=== PATIENT | female | born 1955 | race Caucasian/White ===

== ENCOUNTER 2020-12-04 14:08 | Outpatient (CLI) | payer OTHER ==
--- NOTE | 2020-12-05 09:00 | Mammography Report ---
BILATERAL DIGITAL SCREENING MAMMOGRAM 3D/2D: 12/04/2020 CLINICAL: Routine screening. Comparison is made to exams dated: 08/03/2017 mammogram, 07/07/2016 mammogram, and 11/11/2011 mammogram - [facility]. The tissue of both breasts is extremely dense, which lowers the sens itivity of mammography. There is a biopsy clip in the right breast. No significant masses, calcifications, or other findings are seen in either breast. There has been no significant interval change. IMPRESSION: NEGATIVE There is no mammographic evidence of malignancy. A 1 year screening mammogram is recommended. This exam was interpreted at Station ID: [id number]. NOTE: For mammograms, a report in lay terms will be sent to the patient. Approximately 15% of breast malignancies will not be visualized mammographically. In the management of a palpable breast mass, a negative mammogram must not discourage biopsy of a clinically suspicious lesion. Electronically Signed By: Jose Domingo M.D. ar/penrad:12/04/2020 15:32:46 ACR BI-RADS Category 1: Negative 3341F PARENCHYMAL PATTERN: (VD) - The breast(s) demonstrate(s) extremely dense parenchyma, limiting the sen sitivity of mammography. BI-RADS CATEGORY: (1) - 1 RECOMMENDATION: (ANNUAL) - Recommend routine annual screening mammography. [id number] 1 year screening LATERALITY: (B)
== END 2020-12-04 14:09 | disposition home or self-care (01) ==
LOC: DI 14:08
DX: Z12.31 Encounter for screening mammogram for malignant neoplasm of breast (principal)

== ENCOUNTER 2020-12-10 09:52 | Outpatient (CLI) | payer OTHER ==
[2020-12-10 15:10] LABS: BASOPHILS % (AUTO) 0.6 %; EOSINOPHILS # (AUTO) 0.1 10^3/uL (0.0-0.7); EOSINOPHILS % (AUTO) 0.9 %; HCT - HEMATOCRIT 38.3 % (37.0-47.0); HGB - HEMOGLOBIN 12.3 g/dL (12.0-16.0); LYMPHOCYTES # (AUTO) 1.8 10^3/uL (1.5-3.5); LYMPHOCYTES % (AUTO) 32.6 %; MEAN CORPUSCULAR HGB CONC 32.1 g/dL (32.0-36.0); MEAN CORPUSCULAR VOLUME 90.3 fL (81.0-99.0); MEAN PLATELET VOLUME 11.6 fL (7.9-10.8); MONOCYTES # (AUTO) 0.5 10^3/uL (0.0-1.0); MONOCYTES % (AUTO) 8.6 %; NEUTROPHILS # (AUTO) 3.1 10^3/uL (1.5-6.6); NEUTROPHILS % (AUTO) 56.9 %; PLT - PLATELET COUNT 258 10^3/uL (130-450); RED BLOOD COUNT 4.24 10^6/uL (4.20-5.40); RED CELL DISTRIBUTION WIDTH 13.5 % (12.0-15.0); WHITE BLOOD COUNT 5.4 x10^3/uL (4.8-10.8)
[2020-12-10 15:27] LABS: ALBUMIN 4.4 g/dL (3.2-5.5); ALBUMIN/GLOBULIN RATIO 1.8 (1.0-2.2); ALKALINE PHOSPHATASE 46 IU/L (42-121); ALT ALANINE AMINOTRANSFERASE 18 IU/L (10-60); AST ASPARTATE AMINOTRANSFERASE 20 IU/L (10-42); BUN - BLOOD UREA NITROGEN 13 mg/dL (6-20); CALCIUM 9.3 mg/dL (8.5-10.3); CARBON DIOXIDE - CO2 27 mmol/L (21-32); CHLORIDE 102 mmol/L (101-111); CHOL/HDL RATIO 2.5 (<4.4); CHOLESTEROL 268 mg/dL; CREATININE 0.6 mg/dL (0.4-1.0); GFR - MDRD 101 (>89); GLUCOSE 91 mg/dL (70-100); HDL CHOLESTEROL 106 mg/dL; LDL CHOLESTEROL,CALCULATED 154 mg/dL; LDL/HDL RATIO 1.5 (<4.4); POTASSIUM 3.6 mmol/L (3.5-5.0); SODIUM 139 mmol/L (135-145); TOTAL PROTEIN 6.8 g/dL (6.7-8.2); TRIGLYCERIDES 41 mg/dL; VLDL CHOLESTEROL 8 mg/dL
[2020-12-10 15:35] LABS: THYROID STIMULATING HORMONE 3.83 uIU/mL (0.34-5.60)
== END 2020-12-10 09:53 | disposition home or self-care (01) ==
LOC: LAB.S 09:52
PROVIDERS: ATTEND Registered Nurse
DX: G47.00 Insomnia, unspecified (principal); Z79.899 Other long term (current) drug therapy
CPT/HCPCS: 36415; 80053; 80061; 83721; 84443; 85025

== ENCOUNTER 2021-08-25 11:30 | Outpatient (CLI) | payer MEDICARE ==
[2021-08-25 14:32] LABS: HCT - HEMATOCRIT 39.6 % (37.0-47.0); HGB - HEMOGLOBIN 13.2 g/dL (12.0-16.0); MEAN CORPUSCULAR HEMOGLOBIN 29.7 pg (27.0-31.0); MEAN CORPUSCULAR HGB CONC 33.3 g/dL (32.0-36.0); RED BLOOD COUNT 4.45 10^6/uL (4.20-5.40); RED CELL DISTRIBUTION WIDTH 13.2 % (12.0-15.0)
[2021-08-25 16:28] LABS: URIC ACID 3.2 mg/dL (2.6-7.2)
[2021-08-25 16:29] LABS: CRP - C-REACTIVE PROTEIN < 1.0 mg/dL (0-1.0)
[2021-08-25 17:40] LABS: RHEUMATOID FACTOR NEGATIVE (Negative)
--- NOTE | 2021-08-25 17:40 | XRAY Report ---
PROCEDURE: Hand 2 View BILAT INDICATIONS: RIGHT THUMB PAIN TECHNIQUE: 2 views of the right and left hand(s) acquired. COMPARISON: None FINDINGS: Bones: No fractures or dislocations. No suspicious bony lesions. Mild bilateral first CMC joint ar thritis. Soft tissues: No suspicious soft tissue calcifications. IMPRESSION: Mild bilateral first CMC joint arthritis. Reviewed by: Anastasiya Cee MD, PhD on 08/25/2021 5:39 PM PST Approved by: Anastasiya Cee MD, PhD on 08/25/2021 5:39 PM PST Station ID: [id number]
[2021-08-27 15:41] LABS: DNA (DS) ANTIBODY <1 IU/mL
[2021-08-27 16:51] LABS: CYCLIC CITRULL PEPTIDE CCP IGG <16 UNITS
== END 2021-08-25 11:31 | disposition home or self-care (01) ==
LOC: DI.S 11:30
PROVIDERS: ATTEND Registered Nurse
DX: M79.644 Pain in right finger(s) (principal); M18.0 Bilateral primary osteoarthritis of first carpometacarpal joints
CPT/HCPCS: 36415; 84550; 85027; 85651; 86140; 86200; 86225; 86430

== ENCOUNTER 2022-10-20 07:51 | Outpatient (CLI) | payer MEDICARE ==
[2022-10-20 15:01] LABS: BASOPHILS # (AUTO) 0.1 10^3/uL (0.0-0.1); BASOPHILS % (AUTO) 1.4 %; EOSINOPHILS # (AUTO) 0.1 10^3/uL (0.0-0.7); EOSINOPHILS % (AUTO) 1.8 %; HCT - HEMATOCRIT 41.7 % (37.0-47.0); HGB - HEMOGLOBIN 13.4 g/dL (12.0-16.0); LYMPHOCYTES # (AUTO) 1.9 10^3/uL (1.5-3.5); LYMPHOCYTES % (AUTO) 30.9 %; MEAN CORPUSCULAR HGB CONC 32.1 g/dL (32.0-36.0); MEAN CORPUSCULAR VOLUME 93.3 fL (81.0-99.0); MEAN PLATELET VOLUME 11.8 fL (7.9-10.8); MONOCYTES # (AUTO) 0.6 10^3/uL (0.0-1.0); NEUTROPHILS # (AUTO) 3.5 10^3/uL (1.5-6.6); NEUTROPHILS % (AUTO) 56.4 %; PLT - PLATELET COUNT 284 10^3/uL (130-450); RED BLOOD COUNT 4.47 10^6/uL (4.20-5.40); RED CELL DISTRIBUTION WIDTH 13.5 % (12.0-15.0); WHITE BLOOD COUNT 6.2 x10^3/uL (4.8-10.8)
[2022-10-20 15:31] LABS: ALBUMIN 4.3 g/dL (3.2-5.5); ALBUMIN/GLOBULIN RATIO 1.5 (1.0-2.2); ALKALINE PHOSPHATASE 53 IU/L (42-121); ALT ALANINE AMINOTRANSFERASE 16 IU/L (10-60); AST ASPARTATE AMINOTRANSFERASE 23 IU/L (10-42); BILIRUBIN,TOTAL 0.8 mg/dL (0.2-1.0); BUN - BLOOD UREA NITROGEN 10 mg/dL (6-20); CALCIUM 9.5 mg/dL (8.5-10.3); CARBON DIOXIDE - CO2 29 mmol/L (21-32); CHLORIDE 106 mmol/L (101-111); CHOL/HDL RATIO 2.4 (<4.4); CHOLESTEROL 262 mg/dL; CREATININE 0.6 mg/dL (0.4-1.0); GFR - MDRD 100 (>89); GLUCOSE 94 mg/dL (70-100); HDL CHOLESTEROL 107 mg/dL; LDL CHOLESTEROL,CALCULATED 141 mg/dL; LDL/HDL RATIO 1.3 (<4.4); POTASSIUM 3.6 mmol/L (3.5-5.0); SODIUM 140 mmol/L (135-145); TOTAL PROTEIN 7.1 g/dL (6.7-8.2); TRIGLYCERIDES 68 mg/dL; VLDL CHOLESTEROL 14 mg/dL
[2022-10-20 16:00] LABS: THYROID STIMULATING HORMONE 5.19 uIU/mL (0.34-5.60)
== END 2022-10-20 07:52 | disposition home or self-care (01) ==
LOC: LAB.S 07:51
PROVIDERS: ATTEND Registered Nurse
DX: Z79.899 Other long term (current) drug therapy (principal); Z13.220 Encounter for screening for lipoid disorders
CPT/HCPCS: 36415; 80053; 80061; 83721; 84443; 85025

== ENCOUNTER 2022-11-08 14:02 | Outpatient (CLI) | payer MEDICARE ==
--- NOTE | 2022-11-09 10:23 | Mammography Report ---
BILATERAL DIGITAL SCREENING MAMMOGRAM 3D/2D: 11/08/2022 CLINICAL: Routine screening. Family history of breast cancer. Comparison is made to exams dated: 12/04/2020 mammogram - [facility], 08/03/2017 [facility], and 07/07/2016 mammogram - [facility]. Both breasts are extremely dense, which lowers the sensitivity of mammography (category d />75% gland ular tissue). There is a biopsy clip in the right breast. No significant masses, calcifications, or other findings are seen in either breast. There has been no significant interval change. IMPRESSION: NEGATIVE There is no mammographic evidence of malignancy. A 1 year screening mammogram is recommended. Based on the Tyrer Cuzick model (a risk assessment model) the patients lifetime risk is 12.4% and he r 10 year risk is 6.3%. According to the ACR, ACS, and NCCN guidelines, an annual breast MRI exam harish ng with mammogram is recommended if the patients lifetime risk is 20% or greater. This exam was interpreted at Station ID: [id number]. NOTE: For mammograms, a report in lay terms will be sent to the patient. Approximately 15% of breast malignancies will not be visualized mammographically. In the management of a palpable breast mass, a negative mammogram must not discourage biopsy of a clinically suspicious lesion. Electronically Signed By: Quentin medina/lino:11/08/2022 15:34:58 letter sent: No_Letter ACR BI-RADS Category 1: Negative 3341F PARENCHYMAL PATTERN: (VD) - The breast(s) demonstrate(s) extremely dense parenchyma, limiting the sen sitivity of mammography. BI-RADS CATEGORY: (1) - 1 Mammogram [id number] 1 year screening LATERALITY: (B)
== END 2022-11-08 14:03 | disposition home or self-care (01) ==
LOC: DI.S 14:02
PROVIDERS: ATTEND Registered Nurse
DX: Z12.31 Encounter for screening mammogram for malignant neoplasm of breast (principal); Z80.3 Family history of malignant neoplasm of breast

== ENCOUNTER 2023-05-04 10:23 | Day surgery (SDC) | payer MEDICARE ==
[2023-05-04] MEDS ORDERED: LACTATED RINGERS 1,000 ML IV ONE ×2 (10:29→11:54)
[2023-05-04] MEDS ORDERED: PROPOFOL 500 MG/50 ML 500 MG/50 ML VIAL ONE (11:20)
--- NOTE | 2023-05-04 11:22 | ANESTHESIA ---
Pre-Anesthesia VS, & Labs - Diagnosis screening - Procedure colonoscopy Vital Signs: Temp Pulse Resp BP Pulse Ox O2 Flow Rate 36.4 C L 72 16 129/80 100 05/04/23 10:44 05/04/23 10:44 05/04/23 10:44 05/04/23 10:44 05/04/23 10:44 Height: 5 ft 2 in Weight (kg): 54 kg Body Mass Index: 21.7 BMI Classification: Normal - NPO Other (prep as directed, last water at 8:30) - Is Patient ?: No Home Medications and Allergies Home Medications: Ambulatory Orders Zolpidem [Ambien] 6.25 mg PO HS 05/03/23 Zolpidem [Ambien] 6.25 mg PO HS 05/03/23 Allergies/Adverse Reactions: Allergies Allergy/AdvReac Type Severity Reaction Status Date / Time No Known Drug Allergies Allergy Verified 05/04/23 10:34 Anes History & Medical History - Anesthetic History Anesthesia Complications: reports: No previous complications - Medical History Cardiovascular: reports: None Pulmonary: reports: None Gastrointestinal: reports: Colon polyps Urinary: reports: None Musculoskeletal: reports: None Endocrine/Autoimmune: reports: None Skin: reports: Herpes zoster Smoking Status: Former smoker Psychosocial: reports: Alcohol (wine on weekends) History of Cancer?: No - Surgical History General: reports: Colonoscopy, Other (rectal abcess) Exam General: Alert Dental: WNL Neck Mobility: Normal Mallampati classification: I Thyromental Distance: greater than 6 cm Respiratory: Lungs clear Cardiovascular: Regular rate, Normal S1, Normal S2 Plan Anesthesia Type: General Consent for Procedure(s) Verified and Reviewed: Yes Code Status: Attempt Resuscitation ASA classification: 2-Mild systemic disease Is this case an emergency?: No
[2023-05-04] MEDS ORDERED: MIDAZOLAM 2 MG/2 ML VIAL ONE (11:24)
[2023-05-04 12:15] VITALS: BP 111/66; O2SAT 100
--- NOTE | 2023-05-04 12:17 | ANESTHESIA POST OP EVALUATION ---
Anesthesia Post Eval - Post Anesthesia Eval Vitals: Last Vital Signs Temp 36.2 C L 05/04/23 11:54 Pulse 64 05/04/23 12:10 Resp 16 05/04/23 12:10 BP 111/66 05/04/23 12:10 Pulse Ox 100 05/04/23 12:10 O2 Flow Rate CV Function Including HR & BP: Stable Pain Control: Satisfactory Nausea & Vomiting: Negative Mental Status: Baseline Respiratory Status: Airway Patent Hydration Status: Satisfactory Anesthesia Complications: None
== END 2023-05-04 10:24 | disposition home or self-care (01) ==
LOC: SDS 10:23
PROVIDERS: ATTEND Surgery
PROC: 0DJD8ZZ Inspection of Lower Intestinal Tract, Via Natural or Artificial Opening Endoscopic (ICD-10-PCS; principal; 2023-05-04 11:30)
DX: Z12.11 Encounter for screening for malignant neoplasm of colon (principal); K64.1 Second degree hemorrhoids; K64.4 Residual hemorrhoidal skin tags; Z86.010 Personal history of colon polyps; Z87.891 Personal history of nicotine dependence
CPT/HCPCS: G0105; J7120

== ENCOUNTER 2024-01-24 15:50 | Outpatient (CLI) | payer MEDICARE ==
--- NOTE | 2024-01-24 17:43 | XRAY Report ---
PROCEDURE: Pelvis 1-2V INDICATIONS: PAIN IN RIGHT THIGH,MYALGIA TECHNIQUE: 1 view(s) of the pelvis acquired. COMPARISON: None. FINDINGS: Bones: No acute fractures. No suspicious bone lesions. Moderate degenerative joint space loss in the right femoral acetabular joint with mild sclerosis and subcortical cystic changes. Slight marginal s pur formation. Mild joint space loss in the left. Soft tissues: Increased quantity of retained stool. No suspicious soft tissue calcifications. IMPRESSION: Moderate degenerative changes in the right hip greater than left. Colonic obstipation. Reviewed by: Jasmina Mcdaniel MD on 01/24/2024 5:42 PM PDT Approved by: Jasmina Mcdaniel MD on 01/24/2024 5:42 PM PDT Station ID: [id number]
--- NOTE | 2024-01-24 17:44 | XRAY Report ---
PROCEDURE: Femur 2+V RT INDICATIONS: PAIN IN RIGHT THIGH,MYALGIA TECHNIQUE: 2 views of the femur were acquired. COMPARISON: None. FINDINGS: Bones: No fractures or dislocations. Moderate hip joint degeneration. No suspicious bony lesions. Soft tissues: No suspicious soft tissue calcifications or masses. IMPRESSION: Moderate right hip joint degeneration. Reviewed by: Jasmina Mcdaniel MD on 01/24/2024 5:43 PM PDT Approved by: Jasmina Mcdaniel MD on 01/24/2024 5:43 PM PDT Station ID: [id number]
== END 2024-01-24 15:51 | disposition home or self-care (01) ==
LOC: DI.S 15:50
PROVIDERS: ATTEND Registered Nurse
DX: M79.651 Pain in right thigh (principal); M79.10 Myalgia, unspecified site; M16.0 Bilateral primary osteoarthritis of hip; K59.00 Constipation, unspecified

== ENCOUNTER 2024-02-03 09:10 | Outpatient (CLI) | payer MEDICARE ==
--- NOTE | 2024-02-04 13:05 | MRI Report ---
PROCEDURE: Femur/Thigh RT WO INDICATIONS: PAIN IN R THIGH TECHNIQUE: Noncontrast coronal and sagittal T1 spin echo and STIR; axial T1 spin echo and T2 fast spin echo with fat saturation through the right side. COMPARISON: Pelvic and femoral radiograph dated 01/24/2024 FINDINGS: Image quality: Excellent. Bones: Asymmetric moderate to severe right hip joint osteoarthritic changes are seen with complete lo ss of joint space, extensive subchondral sclerosis and marginal osteophyte formation. Extensive marro w edema involving right femoral head weightbearing portion and adjacent right acetabulum is seen. No evidence of avascular necrosis of femoral head. No marrow signal abnormality is seen in rest of the r ight femur. Mild to moderate tricompartmental osteoarthritis and right knee is seen. Soft tissues: There is tendinosis involving right gluteus medias and minimus at their insertions on g reater trochanter. Trace amount of fluid within trochanteric bursa is noted, and low-grade bursitis c annot be excluded. Tendinosis involving right hamstring tendon origins at ischial tuberosity is also noted. No other muscle or tendon signal abnormality is seen. No soft tissue mass or drainable fluid c ollection. Limited evaluation of right acetabulum labrum show global signal abnormality concerning fo r extensive labral tear. IMPRESSION: 1. Asymmetric moderate to severe right hip joint osteoarthritis. No acute pelvic or hip fracture. No evidence of avascular necrosis of femoral head. 2. Marrow edema involving right acetabulum and right femoral head and neck likely represent changes r elated to osteoarthritis and contusion. No definite stress fracture is seen. 3. Global signal abnormality throughout right acetabular labrum suggestive of extensive right hip lab ral tear. 4. Distal right gluteus medius and minimus tendinosis and suggestion of trace amount of trochanteric bursal fluid concerning for low-grade bursitis. Tendinosis involving right hamstring tendon origin at ischial tuberosity. No other muscle or tendon signal abnormality is seen in right hip and right thig h. Reviewed by: Michele Adair MD on 02/04/2024 1:03 PM PDT Approved by: Michele Adair MD on 02/04/2024 1:03 PM PDT Station ID: [id number]
== END 2024-02-03 09:11 | disposition home or self-care (01) ==
LOC: DI 09:10
PROVIDERS: ATTEND Registered Nurse
DX: M16.11 Unilateral primary osteoarthritis, right hip (principal); R93.6 Abnormal findings on diagnostic imaging of limbs; M67.853 Other specified disorders of tendon, right hip